=== PATIENT | female | born 1970 | race African-American/Black ===

== ENCOUNTER 2019-01-31 04:10 | Inpatient (IN) | payer BC, OTHER ==
[~2019-01-31] VITALS: Ht 165.1 cm; Wt 91.7 kg
[~2019-01-31 04:10] MED LIST: ALBU8.5H8 INH; BREO INH; DOXY100T2 PO; FLUT1AER INHALATION; HYDR-4011 PO
[2019-01-31] MEDS ORDERED: HYDROCODONE/APAP (5/325) TAB PO ONE (05:00)
[2019-01-31] MEDS ORDERED: morphine 4 MG/ML VIAL IV STA (06:11)
[2019-01-31] MEDS ORDERED: CLINDAMYCIN 900 MG (PMX) 50 ML IVPB STA (06:11)
[2019-01-31] MEDS ORDERED: ACETAMINOPHEN 325 MG TAB PO PRN ×2 (07:30→10:00)
[2019-01-31] MEDS ORDERED: ONDANSETRON 4 MG INJ IV PRN ×2 (07:30→10:00)
[2019-01-31 09:45] VITALS: BP 135/85; PULSE 100; RESP 20
[2019-01-31] MEDS ORDERED: VANCOMYCIN IV PER PHARMACY XX SCH (10:00)
[2019-01-31] MEDS ORDERED: HYDROCODONE/APAP (5/325) TAB PO PRN (10:00)
[2019-01-31 10:17] VITALS: Ht 165.1 cm; Wt 91.7 kg
[2019-01-31] MEDS ORDERED: VANCOMYCIN HCL 2 GM in SOD CHLORIDE 0.9% 500 ML IVPB ONE (11:30)
[2019-01-31] MEDS: PIPER-TAZO 3.375 GM IV (PMX) 100 ML IVPB SCH ×2 (11:30→17:59)
[2019-01-31 14:00] VITALS: BP 127/78; RESP 20
[2019-01-31 14:20] VITALS: PULSE 87
[2019-01-31] MEDS: SOD CHLORIDE 0.9% 1,000 ML IV SCH (17:59)
[2019-01-31] MEDS: ALBUTEROL/IPRATROPIUM (NEB) 3 ML AMP HHN SCH (19:13)
[2019-01-31 20:00] VITALS: BP 124/75; PULSE 76; RESP 18
[2019-01-31] MEDS: morphine 2 MG INJ IV PRN (20:02)
[2019-01-31] MEDS: FAMOTIDINE 20 MG TAB PO SCH (20:57)
[2019-02-01] MEDS: PIPER-TAZO 3.375 GM IV (PMX) 100 ML IVPB SCH ×3 (00:45→11:43)
[2019-02-01 02:00] VITALS: BP 108/70; PULSE 73; RESP 19
[2019-02-01] MEDS: VANCOMYCIN 1.25 GM/NS 250 ML 250 ML IVPB SCH ×2 (02:24→12:59)
[2019-02-01] MEDS ORDERED: ALBUTEROL HFA 8 GM INHALER INH PRN (04:00)
[2019-02-01] MEDS: SOD CHLORIDE 0.9% 1,000 ML IV SCH ×2 (05:47→16:39)
[2019-02-01 08:00] VITALS: BP 153/83; PULSE 67; RESP 20
[2019-02-01] MEDS: ALBUTEROL/IPRATROPIUM (NEB) 3 ML AMP HHN SCH ×4 (08:15→20:36)
[2019-02-01] MEDS: FLUTICASONE/VILANTEROL 100-25 INH SCH (08:34)
[2019-02-01] MEDS: FAMOTIDINE 20 MG TAB PO SCH ×2 (08:34→21:08)
[2019-02-01] MEDS: ENOXAPARIN 30 MG/0.3 ML SYG SC SCH (08:35)
[2019-02-01 14:00] VITALS: BP 128/73; PULSE 68; RESP 18
[2019-02-01] MEDS: CEFTRIAXONE 1 GM/50 ML (PMX) 50 ML IVPB SCH (16:39)
[2019-02-01 20:38] VITALS: BP 129/72; PULSE 75; RESP 20
[2019-02-01] MEDS: morphine 2 MG INJ IV PRN (22:25)
[2019-02-02] VITALS (20 sets, daily range): BP systolic 121–156; BP diastolic 62–98; PULSE 63–92; RESP 13–21
[2019-02-02] MEDS: SOD CHLORIDE 0.9% 1,000 ML IV SCH ×2 (00:45→17:10)
[2019-02-02] MEDS: VANCOMYCIN 1.25 GM/NS 250 ML 250 ML IVPB SCH ×2 (01:33→13:43)
[2019-02-02] MEDS: ALBUTEROL/IPRATROPIUM (NEB) 3 ML AMP HHN SCH ×3 (08:00→19:44)
[2019-02-02] MEDS: FAMOTIDINE 20 MG TAB PO SCH ×2 (08:46→20:09)
[2019-02-02] MEDS: ENOXAPARIN 30 MG/0.3 ML SYG SC SCH (08:46)
[2019-02-02] MEDS: FLUTICASONE/VILANTEROL 100-25 INH SCH (08:46)
[2019-02-02] MEDS ORDERED: FENTAnyl 50 MCG/ML VIAL IV PRN ×4 (10:30→13:30)
[2019-02-02] MEDS ORDERED: HYDROmorphONE 1 MG/5 ML IV SYRINGE IV PRN (10:30)
[2019-02-02] MEDS ORDERED: METOCLOPRAMIDE 10 MG INJ IV PRN (10:30)
[2019-02-02] MEDS ORDERED: ONDANSETRON 4 MG INJ IV PRN (10:30)
[2019-02-02] MEDS ORDERED: MEPERIDINE 25 MG INJ IV PRN (10:30)
[2019-02-02] MEDS ORDERED: DIPHENHYDRAMINE 50 MG INJ IV PRN (10:30)
[2019-02-02] MEDS ORDERED: ALBUTEROL 0.083% (NEB) 2.5 MG/3 ML AMP HHN PRN (10:30)
[2019-02-02] MEDS: ONDANSETRON 4 MG INJ IV PRN (13:04)
[2019-02-02] MEDS: HYDROmorphONE 1 MG/5 ML IV SYRINGE IV PRN ×2 (13:05→13:10)
[2019-02-02] MEDS: CEFTRIAXONE 1 GM/50 ML (PMX) 50 ML IVPB SCH (17:10)
[2019-02-02] MEDS: morphine 2 MG INJ IV PRN (20:12)
[2019-02-03] MEDS: VANCOMYCIN 1.25 GM/NS 250 ML 250 ML IVPB SCH ×2 (00:50→13:57)
[2019-02-03 04:00] VITALS: BP 133/67; PULSE 71; RESP 18
[2019-02-03] MEDS: ACETAMINOPHEN 325 MG TAB PO PRN ×2 (07:04→20:25)
[2019-02-03] MEDS: SOD CHLORIDE 0.9% 1,000 ML IV SCH (07:05)
[2019-02-03] MEDS: ALBUTEROL/IPRATROPIUM (NEB) 3 ML AMP HHN SCH ×3 (07:44→19:46)
[2019-02-03 08:15] VITALS: BP 140/80; PULSE 69; RESP 19
[2019-02-03] MEDS: FAMOTIDINE 20 MG TAB PO SCH ×2 (09:52→20:24)
[2019-02-03] MEDS: FLUTICASONE/VILANTEROL 100-25 INH SCH (09:55)
[2019-02-03 14:00] VITALS: BP 121/70; PULSE 75; RESP 20
[2019-02-03] MEDS: morphine 2 MG INJ IV PRN (15:27)
[2019-02-03] MEDS: CEFTRIAXONE 1 GM/50 ML (PMX) 50 ML IVPB SCH (16:52)
[2019-02-03 19:40] VITALS: BP 137/82; PULSE 75; RESP 20
[2019-02-03] MEDS: MAGNESIUM HYDROXIDE 30ML CUP PO SCH (20:24)
[2019-02-03] MEDS: MINERAL OIL 30ML CUP PO SCH (20:24)
[2019-02-03] MEDS ORDERED: MINERAL OIL 30ML CUP PO SCH (21:00)
[2019-02-04] MEDS: VANCOMYCIN 1.25 GM/NS 250 ML 250 ML IVPB SCH ×2 (01:07→13:16)
[2019-02-04 02:03] VITALS: BP 128/76; PULSE 72; RESP 18
[2019-02-04 08:41] VITALS: BP 179/84; PULSE 71; RESP 18
[2019-02-04] MEDS: FLUTICASONE/VILANTEROL 100-25 INH SCH (08:42)
[2019-02-04] MEDS: FAMOTIDINE 20 MG TAB PO SCH ×2 (08:42→20:35)
[2019-02-04] MEDS: ENOXAPARIN 30 MG/0.3 ML SYG SC SCH (08:43)
[2019-02-04] MEDS: MINERAL OIL 30ML CUP PO SCH ×3 (08:44→20:35)
[2019-02-04] MEDS: ALBUTEROL/IPRATROPIUM (NEB) 3 ML AMP HHN SCH ×3 (08:55→20:14)
[2019-02-04 10:00] VITALS: BP 148/88; PULSE 88
[2019-02-04 14:00] VITALS: BP 132/70; PULSE 77; RESP 18
[2019-02-04] MEDS: CEFTRIAXONE 1 GM/50 ML (PMX) 50 ML IVPB SCH (16:46)
[2019-02-04 19:48] VITALS: BP 118/76; PULSE 86; RESP 16
[2019-02-04] MEDS: MAGNESIUM HYDROXIDE 30ML CUP PO SCH (20:35)
[2019-02-04] MEDS ORDERED: GUAIFENESIN/DM 5ML CUP PO PRN (23:00)
[2019-02-05] MEDS: VANCOMYCIN 1.25 GM/NS 250 ML 250 ML IVPB SCH ×2 (00:55→13:18)
[2019-02-05 02:04] VITALS: BP 123/84; PULSE 84; RESP 18
[2019-02-05] MEDS: ALBUTEROL/IPRATROPIUM (NEB) 3 ML AMP HHN SCH ×3 (08:12→19:16)
[2019-02-05 08:22] VITALS: BP 171/99; PULSE 84; RESP 18
[2019-02-05] MEDS: FAMOTIDINE 20 MG TAB PO SCH ×3 (09:00→20:38)
[2019-02-05 09:15] VITALS: BP 148/83
[2019-02-05] MEDS: MINERAL OIL 30ML CUP PO SCH ×2 (09:16→13:00)
[2019-02-05] MEDS: FLUTICASONE/VILANTEROL 100-25 INH SCH (09:16)
[2019-02-05] MEDS: ENOXAPARIN 30 MG/0.3 ML SYG SC SCH (09:17)
[2019-02-05] MEDS: HYDROCODONE/APAP (5/325) TAB PO PRN ×2 (13:19→20:38)
[2019-02-05 14:03] VITALS: BP 144/81; PULSE 87; RESP 18
[2019-02-05] MEDS: DOXYCYCLINE 100 MG TAB PO SCH ×2 (16:10→21:33)
[2019-02-05] MEDS: ONDANSETRON 4 MG INJ IV PRN (17:34)
[2019-02-05 20:00] VITALS: BP 116/72; PULSE 89; RESP 18
[2019-02-06 02:19] VITALS: BP 111/66; PULSE 92; RESP 18
[2019-02-06 07:54] VITALS: BP 133/76; PULSE 75; RESP 16
[2019-02-06] MEDS: FLUTICASONE/VILANTEROL 100-25 INH SCH (08:19)
[2019-02-06] MEDS: DOXYCYCLINE 100 MG TAB PO SCH (08:19)
[2019-02-06] MEDS: FAMOTIDINE 20 MG TAB PO SCH (08:19)
[2019-02-06] MEDS: ENOXAPARIN 30 MG/0.3 ML SYG SC SCH (08:19)
[2019-02-06] MEDS: ONDANSETRON 4 MG INJ IV PRN (08:25)
[2019-02-06] MEDS: ALBUTEROL/IPRATROPIUM (NEB) 3 ML AMP HHN SCH ×2 (08:43→14:00)
[2019-02-06 14:30] VITALS: BP 135/81; PULSE 79; RESP 16
== END 2019-02-06 19:04 | disposition home or self-care (01) | DRG 580 ==
LOC: E/R 04:10 → PP2 07:01
PROVIDERS: ADMIT Internal Medicine; ATTEND Internal Medicine
PROC: 0HBT0ZZ Excision of Right Breast, Open Approach (ICD-10-PCS; 2019-02-02)
PROC: 07B50ZX Excision of Right Axillary Lymphatic, Open Approach, Diagnostic (ICD-10-PCS; principal; 2019-02-02 10:30)
DX: N61.0 Mastitis without abscess (principal); R65.10 Systemic inflammatory response syndrome (SIRS) of non-infectious origin without acute organ dysfunction; C50.911 Malignant neoplasm of unspecified site of right female breast; E66.9 Obesity, unspecified; Z68.33 Body mass index [BMI] 33.0-33.9, adult
CPT/HCPCS: 80048; 80053; 80202; 85025; 85610; 85730; 87081; 88307; 94640; 94664; 96374; 96375; J0696; J1170; J1200; J1650; J2175; J2270; J2405; J2543; J2765; J3010; J3370; J7030; J7040

== ENCOUNTER 2019-02-10 05:14 | Emergency (ER) | payer OTHER ==
[~2019-02-10] VITALS: Ht 172.7 cm; Wt 88.9 kg
[2019-02-10 05:19] VITALS: Ht 172.7 cm; Wt 88.9 kg
[2019-02-10] MEDS ORDERED: ONDANSETRON 4 MG INJ IV STA (05:48)
[2019-02-10] MEDS ORDERED: HYDROmorphONE 1 MG/ML SYG IV STA (05:48)
[2019-02-10] MEDS ORDERED: CEFEPIME 1GM/50 ML (PMX) 50 ML IVPB ONE (06:00)
[2019-02-10] MEDS ORDERED: VANCOMYCIN 1 GM (PMX) 250 ML IVPB ONE (06:00)
[2019-02-10 09:05] VITALS: BP 119/79; PULSE 76; RESP 16
== END 2019-02-10 09:30 | disposition home or self-care (01) ==
LOC: E/R 05:14
DX: G89.18 Other acute postprocedural pain (principal); J45.909 Unspecified asthma, uncomplicated; C50.911 Malignant neoplasm of unspecified site of right female breast; Z90.11 Acquired absence of right breast and nipple
CPT/HCPCS: 76642; 80053; 85025; 87040; J0692; J1170; J2405; J3370; Z7610; 36415; 96365; 96366; 96367; 96375

== ENCOUNTER 2019-04-01 09:04 | Day surgery (SDC) | payer OTHER ==
[~2019-04-01] VITALS: Ht 165.1 cm; Wt 89.5 kg
[2019-04-01] VITALS (17 sets, daily range): BP systolic 113–137; BP diastolic 71–84; PULSE 71–84; RESP 14–23; Ht 165.1 cm; Wt 89.5 kg
[2019-04-01] MEDS ORDERED: LIDOCAINE 1%/EPI 30 ML INJ ONE (10:03)
[2019-04-01] MEDS ORDERED: MIDAZOLAM 1 MG/ML 2 ML INJ ONE (10:24)
[2019-04-01] MEDS ORDERED: FENTAnyl 50 MCG/ML VIAL ONE ×2 (10:24→12:45)
[2019-04-01] MEDS ORDERED: CEFAZOLIN 1 GM/50 ML (PMX) 50 ML IVPB ONE (10:24)
[2019-04-01] MEDS ORDERED: HEPARIN 1000 UNITS/ML 10 ML INJ ONE (10:24)
[2019-04-01] MEDS ORDERED: FENTAnyl 50 MCG/ML VIAL IV ONE (13:00)
== END 2019-04-01 14:04 | disposition home or self-care (01) ==
LOC: SDS 09:04
PROVIDERS: ATTEND Radiology Diagnostic Radiology
DX: C50.911 Malignant neoplasm of unspecified site of right female breast (principal)
CPT/HCPCS: 36561; 76942; C1788; J0690; J1644; J2250; J3010; Z7610